=== PATIENT | male | born 1995 | race Caucasian/White ===

== ENCOUNTER 2019-12-15 15:49 | Emergency (ER) | payer BC ==
[~2019-12-15] VITALS: Ht 167.6 cm; Wt 50.8 kg
[2019-12-15] MEDS ORDERED: diphenhydrAMINE HCL 50 MG/ML VIAL ONE (16:23)
[2019-12-15] MEDS ORDERED: METOCLOPRAMIDE HCL 10 MG/2 ML VIAL ONE (16:23)
[2019-12-15] MEDS ORDERED: diphenhydrAMINE HCL 50 MG/ML VIAL IV ONE (16:30)
[2019-12-15] MEDS ORDERED: METOCLOPRAMIDE HCL 10 MG/2 ML VIAL IV ONE (16:30)
[2019-12-15] MEDS ORDERED: IV NS 0.9% 250 ML BAG IV ONE (16:30)
--- NOTE | 2019-12-15 16:36 | NUR ---
Patient came in to the er c/o neck pain and fever on and off x 1 week. On room air, breathing evenly and unlabored. connected to the monitor and pulse ox. kept comfortable. Will continuer to monitor accordingly.
[2019-12-15 17:06] VITALS: BP 128/81
--- NOTE | 2019-12-15 17:06 | NUR ---
Patient discharged to home in stable condition. Written and verbal after care instructions given. Patient verbalizes understanding of instruction.IV removed. Catheter intact and site benign. Pressure and 4x4 applied to site. No bleeding noted.
== END 2019-12-15 17:06 | disposition home or self-care (01) ==
LOC: ER 15:53
DX: G43.909 Migraine, unspecified, not intractable, without status migrainosus (principal); R50.9 Fever, unspecified
CPT/HCPCS: 96374; 96375; 99284; J1200; J2765; J7050

== ENCOUNTER 2020-07-12 19:56 | Emergency (ER) | payer BC, MEDICAID ==
[~2020-07-12] VITALS: Ht 167.6 cm; Wt 50.8 kg
--- NOTE | 2020-07-12 20:41 | NUR ---
PT TO ER BED 10 C/O RIGHT OCULAR MIGRAINES SINCE 9x DAYS , WORSENING TODAY. PT. STATES THAT HE HAS HAD MIGRAINES ALL HIS LIFE. PATIENT ALSO STATES THAT HIS VISIONS HAVE TROUBLE FOCUSING. PATIENT IS AAOX4. NO SOB. BREATHING EVENLY AND UNLABORED ON ROOM AIR. CONNECTED TO MONITOR. CURRENTLY NO HEADACHE, NO VISION CHANGES.
[2020-07-12] MEDS ORDERED: diphenhydrAMINE HCL 50 MG/ML VIAL ONE (21:09)
[2020-07-12] MEDS ORDERED: METOCLOPRAMIDE HCL 10 MG/2 ML VIAL ONE (21:09)
[2020-07-12] MEDS: IV NS 0.9% 1,000 ML BAG IV ONE (21:20)
[2020-07-12] MEDS: METOCLOPRAMIDE HCL 10 MG/2 ML VIAL IV ONE (21:20)
[2020-07-12] MEDS: diphenhydrAMINE HCL 50 MG/ML VIAL IV ONE (21:20)
--- NOTE | 2020-07-12 21:20 | NUR ---
ADDENDUM: Intravenous End Time Documentation: Normal saline 1 liter (IV-WO) : start time:0 PM ; end time:2219 PM : IV site: [facility] PIV # 20 Port # 1
[2020-07-12] MEDS ORDERED: SUMA50TA PO (22:11)
--- NOTE | 2020-07-12 22:28 | NUR ---
Patient discharged to home in stable condition. Written and verbal after care instructions given. Patient verbalizes understanding of instruction. IV removed. Catheter intact and site benign. Pressure and 4x4 applied to site. No bleeding noted. Pt ambulatory with a steady gait
[2020-07-12 22:33] VITALS: BP 129/88
== END 2020-07-12 22:43 | disposition home or self-care (01) ==
LOC: ER 19:58
DX: G43.909 Migraine, unspecified, not intractable, without status migrainosus (principal); Z98.890 Other specified postprocedural states
CPT/HCPCS: 96361; 96374; 96375; 99284; J1200; J2765; J7030

== ENCOUNTER 2022-03-17 14:07 | Emergency (ER) | payer MEDICAID, OTHER ==
[~2022-03-17] VITALS: Ht 167.6 cm; Wt 50.8 kg
[~2022-03-17 14:07] MED LIST: SUMA50TA PO
[2022-03-17 15:34] VITALS: BP 167/111
--- NOTE | 2022-03-17 17:15 | NUR ---
to er 16,no apparent change in condition
[2022-03-17] MEDS ORDERED: IBUPROFEN 600 MG TABLET PO ONE (17:30)
[2022-03-17] MEDS ORDERED: IBUPROFEN 600 MG TABLET ONE (17:35)
--- NOTE | 2022-03-17 17:37 | NUR ---
strep swab collected and sent to lab.
--- NOTE | 2022-03-17 19:08 | NUR ---
Patient discharged to home in stable condition. Written and verbal after care instructions given. Patient verbalizes understanding of instruction.
== END 2022-03-17 19:08 | disposition home or self-care (01) ==
LOC: ER 14:13
DX: J02.9 Acute pharyngitis, unspecified (principal); H61.22 Impacted cerumen, left ear; H83.8X2 Other specified diseases of left inner ear; R05.9 Cough, unspecified; R00.0 Tachycardia, unspecified; G43.909 Migraine, unspecified, not intractable, without status migrainosus; Z79.899 Other long term (current) drug therapy
CPT/HCPCS: 71045-TC; 86403-TC